=== PATIENT | male | born 1970 | race Caucasian/White ===

== ENCOUNTER 2021-04-18 13:58 | Inpatient (IN) | payer BC ==
[2021-04-18] VITALS (10 sets, daily range): BP systolic 110–122; BP diastolic 71–78
[~2021-04-18] VITALS: Ht 180.3 cm; Wt 107.0 kg
[2021-04-18] MEDS ORDERED: ondansetron/PF 4mg/2ml inj IV ONE (14:10)
[2021-04-18] MEDS ORDERED: morphine 4 MG/ML inj SYRINge IV ONE (14:10)
[2021-04-18] MEDS ORDERED: normal saline 1000ML IV soln IVB ONE (14:10)
[2021-04-18 14:38] LABS: BASOPHILS # (AUTO) 0.1 X10'3 (0-0.2); BASOPHILS % (AUTO) 0.5 % (0-1); EOSINOPHILS % (AUTO) 0.1 % (0-6); HEMATOCRIT 50.4 % (42.0-52.0); LYMPHOCYTES # (AUTO) 2.5 X10'3 (1.1-4.8); LYMPHOCYTES % (AUTO) 19.1 % (21-51); MEAN CORPUSCULAR HEMOGLOBIN 33.1 PG (27.0-31.0); MEAN CORPUSCULAR HGB CONC 36.2 g/dL (33.0-36.5); MEAN CORPUSCULAR VOLUME 91.3 FL (78-98); MEAN PLATELET VOLUME 8.2 FL (7.4-10.4); MONOCYTES # (AUTO) 0.7 X10'3 (0-0.9); MONOCYTES % (AUTO) 5.3 % (2-12); NEUTROPHILS # (AUTO) 9.9 X10'3 (1.8-7.7); PLATELET COUNT 245 X10'3 (140-440); RED BLOOD COUNT 5.53 X10'6 (4.70-6.10); RED CELL DISTRIBUTION WIDTH 13.1 % (11.5-14.5); WHITE BLOOD COUNT 13.2 X10'3 (4.5-11.0)
[2021-04-18 14:54] LABS: ALANINE AMINOTRANSFERASE 29 U/L (12-78); ALBUMIN 4.6 G/DL (3.4-5.0); ALKALINE PHOSPHATASE 93 IU/L (46-116); ANION GAP 17 (8-16); ASPARTATE AMINO TRANSFERASE 12 U/L (10-37); BILIRUBIN,TOTAL 1.7 MG/DL (0.1-1.0); BLOOD UREA NITROGEN 9 MG/DL (7-18); BUN/CREATININE RATIO 6.5 (5.4-32.0); CALCIUM 10.7 MG/DL (8.5-10.1); CHLORIDE 98 MMOL/L (99-107); CREATININE 1.39 MG/DL (0.60-1.10); GLUCOSE 162 MG/DL (70-104); LIPASE 144 U/L (73-393); POTASSIUM 3.3 MMOL/L (3.5-5.1); SODIUM 138 MMOL/L (135-145); TOTAL CARBON DIOXIDE 23.3 MMOL/L (24-32); TOTAL PROTEIN 9.1 G/DL (6.4-8.2); eGFR 54 ML/MIN
[2021-04-18 15:12] LABS: PARTIAL THROMBOPLASTIN TIME 27 SECONDS (22-32)
[2021-04-18 15:13] LABS: HEMOGLOBIN 18.3 g/dl (14.0-17.9)
[2021-04-18 15:18] LABS: PLATELET ESTIMATE NORMAL
[2021-04-18 15:20] LABS: SPHEROCYTES FEW
[2021-04-18] MEDS ORDERED: normal saline 1000ML IV soln IV ONE (15:25)
[2021-04-18] MEDS ORDERED: piperacillin/tazo 3.375gm/50ml 50 ML IV ONE (15:50)
[2021-04-18] MEDS ORDERED: NO HOME MEDS (16:14)
[2021-04-18] MEDS: normal saline 1000ml 1,000 ML IV SCH (19:30)
[2021-04-18] MEDS ORDERED: LORazepam 2 mg/ml vial IV PRN (19:30)
[2021-04-18] MEDS ORDERED: dextrose 50%-water 50ml dispensing syringe IV PRN (19:30)
[2021-04-18] MEDS ORDERED: haloperidol lactate 5mg/ml inj IM PRN (19:30)
[2021-04-18] MEDS ORDERED: magnesium 2GM in 50ml NS 50 ML IV PRN (19:30)
[2021-04-18] MEDS ORDERED: magnesium 4gm in 100ml NS 100 ML IV PRN (19:30)
[2021-04-18] MEDS ORDERED: potassium Cl 20 mEq SR tablet PO PRN (19:30)
[2021-04-18] MEDS ORDERED: magnesium Cl slow-release 64mg tablet PO PRN (19:30)
[2021-04-18] MEDS ORDERED: haloperidol 5mg tablet PO PRN (19:30)
[2021-04-18] MEDS ORDERED: potassium CL 10mEq/100ml bag 100 ML IV PRN (19:30)
[2021-04-18] MEDS ORDERED: BUPIVAcaine 0.5% inj/PF 30 ML ONE (19:32)
[2021-04-18] MEDS ORDERED: sevoflurane 250ml liquid IH ONE (20:00)
[2021-04-18] MEDS ORDERED: glycopyrrolate 0.2mg/ml inj ONE (20:00)
[2021-04-18] MEDS ORDERED: dexamethasone sod phosphate 10mg/ml inj ONE (20:00)
[2021-04-18] MEDS ORDERED: neostigmine methylsulfate 1 MG/ML 10ml vial ONE (20:00)
[2021-04-18] MEDS: K and/or MAG REPLACEMENT MC SCH (20:00)
[2021-04-18] MEDS ORDERED: midazolam 1 mg/ML 2ml injection ONE (20:08)
[2021-04-18] MEDS ORDERED: meperidine/PF 25mg/ml syringe ONE (20:08)
[2021-04-18] MEDS ORDERED: fentaNYL/PF 50MCG/1 ML 2ML syringe ONE (20:08)
[2021-04-18] MEDS ORDERED: propofol inj 20 ML IV ONE (20:10)
[2021-04-18] MEDS ORDERED: LIDOcaine 2% (20mg/ml) 5ml vial ONE (20:10)
[2021-04-18 20:32] LABS: MAGNESIUM 1.7 MG/DL (1.5-2.4)
[2021-04-18] MEDS ORDERED: ringers solution, lacted 1,000 ML IV SCH (20:35)
[2021-04-18] MEDS ORDERED: meperidine/PF 25mg/ml syringe IV PRN ×3 (20:35)
[2021-04-18] MEDS ORDERED: morphine 2 MG/ML inj. syringe IV PRN (20:35)
[2021-04-18] MEDS ORDERED: ondansetron/PF 4mg/2ml inj IV PRN (20:35)
[2021-04-18] MEDS ORDERED: morphine 4 MG/ML inj SYRINge IV PRN (20:35)
[2021-04-18] MEDS ORDERED: proCHLORperazine 10 MG/2 ml inj IV PRN (20:35)
[2021-04-18] MEDS ORDERED: ondansetron/PF 4mg/2ml inj ONE (20:48)
[2021-04-18] MEDS ORDERED: thiamine 100mg/ml 2ml inj. IV SCH (21:00)
[2021-04-18] MEDS ORDERED: thiamine 100mg tablet PO SCH (21:00)
[2021-04-18] MEDS ORDERED: rocuronium 10mg/ml inj IV ONE ×2 (21:12)
[2021-04-18] MEDS ORDERED: acetaminophen 1,000mg/100ml IV 100 ML IV ONE (21:14)
--- NOTE | 2021-04-18 21:35 | NUR ---
Received from OR via [facility], accompanied by Anesthesiologist and report given by Anesthesiologist. PATIENT WAKING UP, NO S/S OF PAIN, V/S WNL, SCD ON, 20G TO RUE, LAP SURGICAL SITES TO ABDOMEN CDI.
--- NOTE | 2021-04-18 22:05 | NUR ---
Pt arrived on bed. VSS 3 lap sites CDI Pain 0/10
--- NOTE | 2021-04-18 22:05 | NUR ---
PATIENT A&OX4, DENIES PAIN, V/S WNL, SCD ON, 20G TO RUE, LAP SURGICAL SITES TO ABDOMEN CDI. F/C DRAINING CLEAR YELLOW URINE. PATIENT TAKEN TO ROOM 346A WITH ALL BELONGINGS AND HOOKED UP TO MONITORS IN ROOM AND GIVEN CALL LIGHT, REPORT GIVEN TO RN WHO HAS TAKEN OVER PATIENT CARE.
[2021-04-19] VITALS (7 sets, daily range): BP systolic 116–129; BP diastolic 74–92
[2021-04-19] MEDS: thiamine inj. 200 MG in normal saline 100ml IV soln 100 ML IV SCH ×4 (00:01→20:33)
[2021-04-19] MEDS: potassium Cl 20 mEq SR tablet PO PRN (00:19)
--- NOTE | 2021-04-19 05:04 | NUR ---
PAGER ID: [phone] MESSAGE: Tyesha Anaya RM 346A had a Lap Appendectomy and he has no pain meds ordered 10/01 pain [id number]
[2021-04-19] MEDS ORDERED: HYDROcodone/acetaminophen 10/325mg tab PO PRN ×2 (05:05→05:15)
[2021-04-19] MEDS: normal saline 1000ml 1,000 ML IV SCH ×3 (05:30→21:52)
[2021-04-19 06:07] LABS: BASOPHILS % (AUTO) 0 % (0-1); EOSINOPHILS % (AUTO) 0 % (0-6); LYMPHOCYTES # (AUTO) 0.5 X10'3 (1.1-4.8); LYMPHOCYTES % (AUTO) 7.9 % (21-51); MEAN PLATELET VOLUME 7.8 FL (7.4-10.4); MONOCYTES # (AUTO) 0.4 X10'3 (0-0.9); MONOCYTES % (AUTO) 5.3 % (2-12); NEUTROPHILS % (AUTO) 86.8 % (42-75); PLATELET COUNT 176 X10'3 (140-440); RED CELL DISTRIBUTION WIDTH 12.7 % (11.5-14.5)
--- NOTE | 2021-04-19 06:10 | NUR ---
Patient in room [facility] 346. I have received report from PRUDENCIO Pacheco and had the opportunity to ask questions and assume patient care.
[2021-04-19 06:20] LABS: ANION GAP 6 (8-16); BLOOD UREA NITROGEN 9 MG/DL (7-18); BUN/CREATININE RATIO 8.8 (5.4-32.0); CALCIUM 8.4 MG/DL (8.5-10.1); CHLORIDE 105 MMOL/L (99-107); CREATININE 1.02 MG/DL (0.60-1.10); GLUCOSE 144 MG/DL (70-104); MAGNESIUM 1.5 MG/DL (1.5-2.4); POTASSIUM 3.5 MMOL/L (3.5-5.1); SODIUM 136 MMOL/L (135-145); TOTAL CARBON DIOXIDE 25.1 MMOL/L (24-32); eGFR 77 ML/MIN
[2021-04-19 06:41] LABS: HEMATOCRIT 41.9 % (42.0-52.0); HEMOGLOBIN 14.7 g/dl (14.0-17.9); MEAN CORPUSCULAR HEMOGLOBIN 32.9 PG (27.0-31.0); MEAN CORPUSCULAR VOLUME 94.1 FL (78-98); RED BLOOD COUNT 4.45 X10'6 (4.70-6.10)
--- NOTE | 2021-04-19 07:18 | NUR ---
Problems reprioritized. Patient report given, questions answered & plan of care reviewed with PRUDENCIO Amos.
[2021-04-19] MEDS: K and/or MAG REPLACEMENT MC SCH ×2 (07:54→20:00)
[2021-04-19] MEDS ORDERED: CADD PCA waste documentation MC PRN (08:10)
[2021-04-19] MEDS ORDERED: naloxone 0.4 mg/ml inj IV PRN (08:10)
[2021-04-19] MEDS: HYDROmorph./NS 0.2 mg/ml CADD 100 ML IV SCH ×9 (09:00→23:00)
[2021-04-19] MEDS: folic acid 1mg/0.2ml inj IV SCH ×2 (10:21)
[2021-04-19] MEDS: piperacillin/tazo 3.375gm/50ml 50 ML IV SCH ×3 (10:21→23:43)
--- NOTE | 2021-04-19 18:25 | NUR ---
Problems reprioritized. Patient report given, questions answered & plan of care reviewed with PRUDENCIO Gomez.
[2021-04-19] MEDS: lactobacillus rhamnosus 10,000 MMU CELLS/CAPSULE PO SCH (20:27)
[2021-04-20] VITALS: BP 123/86
[2021-04-20] MEDS: HYDROmorph./NS 0.2 mg/ml CADD 100 ML IV SCH ×12 (01:00→23:00)
[2021-04-20] MEDS: ondansetron/PF 4mg/2ml inj IV PRN ×2 (03:43→11:03)
--- NOTE | 2021-04-20 03:59 | NUR ---
Patient c/o nausea he vomited x3 , zofran administered as ordered with some relief . Patient abdomen is distended , he denies passing gas , he voided 700 ml of dark yellow urine . Patient observed ambulating in hallway multiple times this shift . He has dilaudid pump .and pain level remain 3-4
[2021-04-20 06:39] LABS: BASOPHILS % (AUTO) 0.2 % (0-1); EOSINOPHILS % (AUTO) 0 % (0-6); LYMPHOCYTES % (AUTO) 11.5 % (21-51); MEAN PLATELET VOLUME 7.9 FL (7.4-10.4); MONOCYTES # (AUTO) 0.5 X10'3 (0-0.9); MONOCYTES % (AUTO) 5.5 % (2-12); NEUTROPHILS # (AUTO) 6.9 X10'3 (1.8-7.7); NEUTROPHILS % (AUTO) 82.8 % (42-75); PLATELET COUNT 181 X10'3 (140-440); WHITE BLOOD COUNT 8.4 X10'3 (4.5-11.0)
--- NOTE | 2021-04-20 06:40 | NUR ---
Report given to Alix oncoming nurse , questions answered and POC evaluated .
[2021-04-20 06:41] LABS: ALBUMIN 2.8 G/DL (3.4-5.0); ANION GAP 9 (8-16); BLOOD UREA NITROGEN 14 MG/DL (7-18); BUN/CREATININE RATIO 13.5 (5.4-32.0); CALCIUM 8.5 MG/DL (8.5-10.1); CHLORIDE 98 MMOL/L (99-107); CREATININE 1.04 MG/DL (0.60-1.10); GLUCOSE 136 MG/DL (70-104); MAGNESIUM 1.9 MG/DL (1.5-2.4); POTASSIUM 3.3 MMOL/L (3.5-5.1); SODIUM 134 MMOL/L (135-145); TOTAL CARBON DIOXIDE 27.5 MMOL/L (24-32); eGFR 75 ML/MIN
--- NOTE | 2021-04-20 06:46 | NUR ---
Patient in room [facility] 346. I have received report from PRUDENCIO Gomez and had the opportunity to ask questions and assume patient care.
[2021-04-20 07:00] VITALS: BP 138/93
[2021-04-20 07:09] LABS: HEMATOCRIT 39.7 % (42.0-52.0); HEMOGLOBIN 13.8 g/dl (14.0-17.9); MEAN CORPUSCULAR HEMOGLOBIN 33.2 PG (27.0-31.0); MEAN CORPUSCULAR HGB CONC 34.7 g/dL (33.0-36.5); MEAN CORPUSCULAR VOLUME 95.7 FL (78-98); RED BLOOD COUNT 4.15 X10'6 (4.70-6.10)
[2021-04-20] MEDS: piperacillin/tazo 3.375gm/50ml 50 ML IV SCH ×3 (07:40→15:47)
[2021-04-20] MEDS: lactobacillus rhamnosus 10,000 MMU CELLS/CAPSULE PO SCH ×2 (07:40→20:03)
[2021-04-20] MEDS: potassium Cl 20 mEq SR tablet PO PRN ×3 (07:40→20:03)
[2021-04-20] MEDS: thiamine inj. 200 MG in normal saline 100ml IV soln 100 ML IV SCH ×3 (07:40→20:05)
[2021-04-20] MEDS: folic acid 1mg/0.2ml inj IV SCH (07:41)
[2021-04-20] MEDS: normal saline 1000ml 1,000 ML IV SCH ×2 (07:41→17:52)
[2021-04-20] MEDS: K and/or MAG REPLACEMENT MC SCH ×2 (08:00→20:00)
[2021-04-20 11:00] VITALS: BP 134/86
[2021-04-20] MEDS ORDERED: metoclopramide 5 mg/ml inj IV PRN (15:55)
--- NOTE | 2021-04-20 18:19 | NUR ---
Problems reprioritized. Patient report given, questions answered & plan of care reviewed with PRUDENCIO Gomez.
[2021-04-20] MEDS ORDERED: LORazepam 1 MG tablet PO PRN (19:30)
[2021-04-20] MEDS ORDERED: LORazepam 2 mg/ml vial IV PRN (19:30)
[2021-04-20 23:33] VITALS: BP 134/89
[2021-04-21] MEDS ORDERED: famotidine/PF 10 mg/ml inj IV ONE
--- NOTE | 2021-04-21 00:20 | NUR ---
Patient vomited 500 ml of coffee grounds emesis tonDr David soto made aware and he gave orders for iv pepcid to be administered also cbc in am . Zofran was administered as ordered for nausea and vomiting . Patient verbalized some relief .
[2021-04-21] MEDS: piperacillin/tazo 3.375gm/50ml 50 ML IV SCH ×3 (00:28→16:40)
[2021-04-21] MEDS: HYDROmorph./NS 0.2 mg/ml CADD 100 ML IV SCH ×5 (01:00→09:00)
[2021-04-21] MEDS: normal saline 1000ml 1,000 ML IV SCH ×2 (04:12→14:01)
[2021-04-21] MEDS: ondansetron/PF 4mg/2ml inj IV PRN (05:50)
--- NOTE | 2021-04-21 06:45 | NUR ---
Patient in room [facility] 346. I have received report from PRUDENCIO Gomez and had the opportunity to ask questions and assume patient care.
[2021-04-21 06:58] LABS: BASOPHILS % (AUTO) 0.1 % (0-1); EOSINOPHILS % (AUTO) 0.2 % (0-6); HEMATOCRIT 35.1 % (42.0-52.0); HEMOGLOBIN 12.6 g/dl (14.0-17.9); LYMPHOCYTES # (AUTO) 0.9 X10'3 (1.1-4.8); LYMPHOCYTES % (AUTO) 11.4 % (21-51); MEAN CORPUSCULAR HGB CONC 35.8 g/dL (33.0-36.5); MEAN CORPUSCULAR VOLUME 92.2 FL (78-98); MEAN PLATELET VOLUME 8.2 FL (7.4-10.4); MONOCYTES # (AUTO) 0.5 X10'3 (0-0.9); MONOCYTES % (AUTO) 6.7 % (2-12); NEUTROPHILS # (AUTO) 6.5 X10'3 (1.8-7.7); NEUTROPHILS % (AUTO) 81.6 % (42-75); PLATELET COUNT 179 X10'3 (140-440); RED BLOOD COUNT 3.81 X10'6 (4.70-6.10); RED CELL DISTRIBUTION WIDTH 12.5 % (11.5-14.5); WHITE BLOOD COUNT 7.9 X10'3 (4.5-11.0)
[2021-04-21 07:08] LABS: ALBUMIN 2.4 G/DL (3.4-5.0); ANION GAP 8 (8-16); BLOOD UREA NITROGEN 14 MG/DL (7-18); BUN/CREATININE RATIO 16.5 (5.4-32.0); CALCIUM 8.4 MG/DL (8.5-10.1); CHLORIDE 98 MMOL/L (99-107); CREATININE 0.85 MG/DL (0.60-1.10); GLUCOSE 123 MG/DL (70-104); POTASSIUM 3.4 MMOL/L (3.5-5.1); SODIUM 134 MMOL/L (135-145); eGFR > 90 ML/MIN
[2021-04-21 07:21] VITALS: BP 136/83
[2021-04-21] MEDS: K and/or MAG REPLACEMENT MC SCH ×2 (07:45→18:50)
[2021-04-21] MEDS: thiamine inj. 200 MG in normal saline 100ml IV soln 100 ML IV SCH (09:42)
[2021-04-21] MEDS: potassium Cl 20 mEq SR tablet PO PRN ×3 (09:42→17:40)
[2021-04-21] MEDS: lactobacillus rhamnosus 10,000 MMU CELLS/CAPSULE PO SCH ×2 (09:42→20:11)
[2021-04-21] MEDS: famotidine/PF 10 mg/ml inj IV SCH ×2 (09:42→20:13)
[2021-04-21] MEDS: folic acid 1mg/0.2ml inj IV SCH (10:45)
[2021-04-21 11:00] VITALS: BP 123/78
[2021-04-21] MEDS: HYDROcodone/acetaminophen 10/325mg tab PO PRN ×3 (11:08→20:13)
[2021-04-21 11:40] VITALS: BP 123/78
[2021-04-21] MEDS: morphine 2 MG/ML inj. syringe IV PRN ×2 (13:13→21:51)
[2021-04-21] MEDS: metoclopramide 5 mg/ml inj IV SCH ×2 (13:56→20:13)
--- NOTE | 2021-04-21 18:20 | NUR ---
Problems reprioritized. Patient report given, questions answered & plan of care reviewed with PRUDENCIO Jaime.
[2021-04-22] VITALS: BP 127/80
[2021-04-22] MEDS: metoclopramide 5 mg/ml inj IV SCH ×4 (01:25→21:25)
[2021-04-22] MEDS: piperacillin/tazo 3.375gm/50ml 50 ML IV SCH ×3 (01:26→16:18)
[2021-04-22] MEDS: HYDROcodone/acetaminophen 10/325mg tab PO PRN ×4 (01:34→19:56)
[2021-04-22] MEDS: normal saline 1000ml 1,000 ML IV SCH ×2 (01:36→13:30)
[2021-04-22] MEDS: ondansetron/PF 4mg/2ml inj IV PRN (03:34)
[2021-04-22] MEDS: morphine 2 MG/ML inj. syringe IV PRN (03:34)
[2021-04-22 06:03] LABS: BASOPHILS % (AUTO) 0.1 % (0-1); EOSINOPHILS # (AUTO) 0.1 X10'3 (0-0.9); HEMATOCRIT 34.1 % (42.0-52.0); LYMPHOCYTES # (AUTO) 0.8 X10'3 (1.1-4.8); LYMPHOCYTES % (AUTO) 12.7 % (21-51); MEAN CORPUSCULAR HEMOGLOBIN 32.8 PG (27.0-31.0); MEAN CORPUSCULAR HGB CONC 35.2 g/dL (33.0-36.5); MEAN PLATELET VOLUME 7.7 FL (7.4-10.4); MONOCYTES # (AUTO) 0.5 X10'3 (0-0.9); NEUTROPHILS # (AUTO) 5.1 X10'3 (1.8-7.7); NEUTROPHILS % (AUTO) 78.2 % (42-75); PLATELET COUNT 207 X10'3 (140-440); RED BLOOD COUNT 3.66 X10'6 (4.70-6.10); RED CELL DISTRIBUTION WIDTH 12.5 % (11.5-14.5); WHITE BLOOD COUNT 6.5 X10'3 (4.5-11.0)
[2021-04-22 06:09] LABS: ALBUMIN 2.2 G/DL (3.4-5.0); ANION GAP 6 (8-16); BLOOD UREA NITROGEN 11 MG/DL (7-18); BUN/CREATININE RATIO 12.1 (5.4-32.0); CALCIUM 8.3 MG/DL (8.5-10.1); CHLORIDE 100 MMOL/L (99-107); CREATININE 0.91 MG/DL (0.60-1.10); GLUCOSE 102 MG/DL (70-104); POTASSIUM 3.4 MMOL/L (3.5-5.1); SODIUM 133 MMOL/L (135-145); TOTAL CARBON DIOXIDE 27.1 MMOL/L (24-32); eGFR 88 ML/MIN
--- NOTE | 2021-04-22 06:57 | NUR ---
Patient in room [facility] 346. I have received report from Yeni FLANNERY and had the opportunity to ask questions and assume patient care.
[2021-04-22 07:04] VITALS: BP 119/77
[2021-04-22] MEDS: K and/or MAG REPLACEMENT MC SCH ×2 (08:00→19:03)
[2021-04-22] MEDS: famotidine/PF 10 mg/ml inj IV SCH (08:01)
[2021-04-22] MEDS: lactobacillus rhamnosus 10,000 MMU CELLS/CAPSULE PO SCH ×2 (08:01→21:24)
[2021-04-22 11:00] VITALS: BP 142/85
[2021-04-22] MEDS ORDERED: potassium Cl 20 mEq SR tablet PO STA (16:06)
--- NOTE | 2021-04-22 18:19 | NUR ---
Problems reprioritized. Patient report given, questions answered & plan of care reviewed with Yeni FLANNERY.
[2021-04-22] MEDS ORDERED: LORazepam 2 mg/ml vial IV PRN (19:30)
[2021-04-22] MEDS ORDERED: LORazepam 1 MG tablet PO PRN (19:30)
[2021-04-22 20:10] VITALS: BP 143/68
[2021-04-22] MEDS: famotidine 20mg tablet PO SCH (21:24)
[2021-04-23] VITALS: BP 120/76
[2021-04-23] MEDS: normal saline 1000ml 1,000 ML IV SCH ×2 (00:10→09:30)
[2021-04-23] MEDS: piperacillin/tazo 3.375gm/50ml 50 ML IV SCH ×2 (00:12→07:45)
[2021-04-23] MEDS: metoclopramide 5 mg/ml inj IV SCH ×2 (02:19→07:46)
[2021-04-23] MEDS: morphine 2 MG/ML inj. syringe IV PRN (03:23)
[2021-04-23 06:02] LABS: BASOPHILS % (AUTO) 0.3 % (0-1); EOSINOPHILS # (AUTO) 0.1 X10'3 (0-0.9); EOSINOPHILS % (AUTO) 1.9 % (0-6); HEMATOCRIT 31.4 % (42.0-52.0); HEMOGLOBIN 11.3 g/dl (14.0-17.9); LYMPHOCYTES # (AUTO) 0.9 X10'3 (1.1-4.8); LYMPHOCYTES % (AUTO) 13.8 % (21-51); MEAN CORPUSCULAR VOLUME 91.7 FL (78-98); MEAN PLATELET VOLUME 7.4 FL (7.4-10.4); MONOCYTES # (AUTO) 0.7 X10'3 (0-0.9); MONOCYTES % (AUTO) 9.8 % (2-12); NEUTROPHILS # (AUTO) 4.9 X10'3 (1.8-7.7); NEUTROPHILS % (AUTO) 74.2 % (42-75); PLATELET COUNT 215 X10'3 (140-440); RED BLOOD COUNT 3.43 X10'6 (4.70-6.10); RED CELL DISTRIBUTION WIDTH 12.5 % (11.5-14.5); WHITE BLOOD COUNT 6.7 X10'3 (4.5-11.0)
[2021-04-23 06:04] LABS: ALBUMIN 2.2 G/DL (3.4-5.0); ANION GAP 7 (8-16); BLOOD UREA NITROGEN 8 MG/DL (7-18); BUN/CREATININE RATIO 9.4 (5.4-32.0); CALCIUM 8.1 MG/DL (8.5-10.1); CHLORIDE 102 MMOL/L (99-107); CREATININE 0.85 MG/DL (0.60-1.10); GLUCOSE 102 MG/DL (70-104); POTASSIUM 3.3 MMOL/L (3.5-5.1); SODIUM 135 MMOL/L (135-145); TOTAL CARBON DIOXIDE 26.1 MMOL/L (24-32); eGFR > 90 ML/MIN
--- NOTE | 2021-04-23 06:55 | NUR ---
Patient in room [facility] 346. I have received report from Yeni FLANNERY and had the opportunity to ask questions and assume patient care.
[2021-04-23 07:22] VITALS: BP 136/90
--- NOTE | 2021-04-23 07:22 | NUR ---
Patient in room [facility] 346. I have received report from Yeni FLANNERY and had the opportunity to ask questions and assume patient care.
[2021-04-23 07:28] LABS: GIANT PLATELET FEW; PLATELET ESTIMATE NORMAL
[2021-04-23] MEDS: famotidine 20mg tablet PO SCH (07:46)
[2021-04-23] MEDS: lactobacillus rhamnosus 10,000 MMU CELLS/CAPSULE PO SCH (07:46)
[2021-04-23] MEDS: K and/or MAG REPLACEMENT MC SCH (08:00)
[2021-04-23] MEDS ORDERED: folic acid 1mg tablet PO SCH (08:00)
[2021-04-23] MEDS: HYDROcodone/acetaminophen 10/325mg tab PO PRN (08:01)
--- NOTE | 2021-04-23 08:26 | NUR ---
PAGER ID: [phone] MESSAGE: Lion Surg [id number] Re: 346a Jamila Anaya Patient is low in K+ again could we do replacement protocol and stop his fluids he is tolerating PO well. Thanks
--- NOTE | 2021-04-23 10:21 | NUR ---
PAGER ID: [phone] MESSAGE: Lion Surg [id number] Re: 346a Jamila Anaya did you want me to put the discharge or through or were you going to do that, Adrián okay discharged. Thanks Lion.
[2021-04-23] MEDS ORDERED: HYDR-3965 PO (10:28)
--- NOTE | 2021-04-23 11:06 | NUR ---
Patient left with all belongings at this time. discharge teaching was done verbally with patient who expressed verbal understanding of discharge teaching. Patient left with all the belonngs at discharge, IV taken out at this time. Site showed minimal bleeding and canula was whole and intact upon inspection. Patient left in a wheelchair and transported home in private vehicle.
== END 2021-04-23 11:06 | disposition home or self-care (01) | DRG 853 ==
LOC: ER 13:59 → ED HOLD 19:32 → SUR 3N 22:10
PROVIDERS: ADMIT Internal Medicine; ATTEND Internal Medicine
PROC: 0DTJ4ZZ Resection of Appendix, Percutaneous Endoscopic Approach (ICD-10-PCS; principal; 2021-04-18 20:00)
DX: A41.9 Sepsis, unspecified organism (principal); E43 Unspecified severe protein-calorie malnutrition; K35.32 Acute appendicitis with perforation, localized peritonitis, and gangrene, without abscess; K56.7 Ileus, unspecified; N17.9 Acute kidney failure, unspecified; D75.1 Secondary polycythemia; E66.9 Obesity, unspecified; R65.20 Severe sepsis without septic shock; Z20.822 Contact with and (suspected) exposure to COVID-19; E86.0 Dehydration; F12.90 Cannabis use, unspecified, uncomplicated; Z87.891 Personal history of nicotine dependence; Z68.32 Body mass index [BMI] 32.0-32.9, adult
CPT/HCPCS: 96361; 96374; 96375; 99285; Z7506; Z7508; 36415; 71045; 74176; 80048; 80053; 83605; 83690; 83735; 84145; 85008; 85025; 85610; 85730; 87040; 87081; 87635; A4215; A4314; A4618; A7000; C9803; G0378; J0131; J1100; J1170; J2001; J2175; J2250; J2270; J2405; J2543; J2704; J2710; J2765; J3010; J3411; J3490; J7030; J7120